=== PATIENT | male | born 1965 | race Two or more races ===

== ENCOUNTER 2021-02-24 11:31 | Inpatient (IN) | payer MEDICAID, OTHER ==
[~2021-02-24] VITALS: Ht 188 cm; Wt 114.5 kg
[2021-02-24] MEDS ORDERED: PANTOPRAZOLE 40 MG/10 ML VIAL INJ IV STA (11:40)
[2021-02-24] MEDS ORDERED: SODIUM CHLORIDE 0.9% 500 ML IVB ONE (11:45)
[2021-02-24] MEDS ORDERED: ONDANSETRON HCL 4 MG/2 ML VIAL IV ONE (11:45)
[2021-02-24] MEDS ORDERED: dilTIAZem 25 MG/5 ML VIAL IV ONE (11:45)
[2021-02-24 12:15] LABS: Basophils # (auto) 0.1 10 ^3/uL (0-0.2); Basophils % (auto) 0.4 % (0.0-2.0); Eosinophils # (auto) 0 10 ^3/uL (0-0.8); Hemoglobin 15.9 g/dL (13.5-17.5); Monocytes % (auto) 8.7 % (0.0-12.0); Nucleated Red Blood Cells % 0.1 %
[2021-02-24 12:17] LABS: Eosinophils % (auto) 0.3 % (0.0-7.0); Hematocrit 46.5 % (41.0-53.0); Lymphocytes # (auto) 0.7 10 ^3/uL (0.4-5.4); Lymphocytes % (auto) 4.3 % (10.0-50.0); Mean Corpuscular Hemoglobin 29.8 pg (28.0-32.0); Mean Corpuscular Hgb Conc. 34.1 g/dL (32.0-36.0); Mean Corpuscular Volume 87.3 fL (80.0-100.0); Monocytes # (auto) 1.5 10 ^3/uL (0-1.3); Neutrophils # (auto) 14.4 10 ^3/uL (1.6-8.6); Neutrophils % (auto) 86.3 % (37.0-80.0); Platelet Count (auto) 473 10^3/uL (140-450); Red Blood Cells 5.33 10^6/uL (4.5-5.90); Red Cell Distribution Width 14.1 % (11.8-14.3); White Blood Cell 16.7 10^3/uL (4.4-10.8)
[2021-02-24 12:35] LABS: INR 1.14 (0.9-1.15); Partial Thromboplastin Time 28.1 sec (23.0-31.2)
[2021-02-24 12:41] LABS: Alanine Aminotransferase 30 U/L (16-61); Albumin 2.1 g/dL (3.4-5.0); Amylase 53 U/L (25-115); Anion Gap 10 (5-15); Blood Urea Nitrogen 17 mg/dL (7-18); Calcium 9.1 mg/dL (8.5-10.1); Carbon Dioxide 22 mmol/L (21-32); Chloride 102 mmol/L (98-107); Glucose 121 mg/dL (74-106); Lipase 205 U/L (73-393); Potassium 4.2 mmol/L (3.5-5.1); Sodium 134 mmol/L (136-145)
[2021-02-24 12:46] LABS: Alkaline Phosphatase 99 U/L (45-117); Aspartate Aminotransferase 34 U/L (15-37); BUN/Creatinine Ratio 18.1; Bilirubin, Total 0.9 mg/dL (0.2-1.0); GFR African American 106 mL/min; GFR Non-African American 88 mL/min; Total Protein 6.6 g/dL (6.4-8.2)
[2021-02-24] MEDS ORDERED: SOD CHL 0.45% 1,000 ML IV SCH (15:30)
[2021-02-24] MEDS ORDERED: NITROGLYCERIN 0.4 MG SL TAB SL PRN (15:30)
[2021-02-24] MEDS ORDERED: ACETAMINOPHEN 325 MG TAB PO PRN (15:30)
[2021-02-24] MEDS ORDERED: MORPHINE SULF INJ 2 MG/ML SYRINGE 1ML IV PRN ×2 (15:30)
[2021-02-24 15:34] LABS: Urine Bacteria FEW /hpf (None Seen); Urine Blood Negative /uL (Negative); Urine Mucus FEW (None Seen); Urine Specific Gravity 1.022 (1.001-1.035); Urine WBC 4 /hpf (0 - 3)
[2021-02-24 15:56] LABS: Amphetamine Screen, Urine NEGATIVE (NEGATIVE); Barbiturate Scree,Urine NEGATIVE (NEGATIVE); Benzodiazephine Screen, Urine NEGATIVE (NEGATIVE); Cannabinoid Screen, Urine NEGATIVE (NEGATIVE); Cocaine Screen, Urine NEGATIVE (NEGATIVE); Opiate Scree,Urine NEGATIVE (NEGATIVE); Phencyclidine Screen, Urine NEGATIVE (NEGATIVE)
[2021-02-24] MEDS: METOCLOPRAMIDE HCL 5MG/ml INJ 2ml VIAL IV PRN (16:02)
[2021-02-24] MEDS: PROPRANOLOL HCL 20 MG TAB PO SCH ×2 (16:08→22:06)
[2021-02-24] MEDS ORDERED: PROPRANOLOL HCL 20 MG TAB PO SCH (22:00)
[2021-02-24] MEDS: ALBUMIN 25% 50 ML IV SCH (22:07)
[2021-02-24 22:08] VITALS: BP 113/58
[2021-02-24] MEDS ORDERED: METO25TA93 PO (22:42)
[2021-02-24] MEDS ORDERED: ASPI-498 PO (22:42)
[2021-02-25] MEDS: ALBUMIN 25% 50 ML IV SCH ×2 (04:05→13:22)
[2021-02-25 04:37] VITALS: BP 107/69
[2021-02-25] MEDS: PROPRANOLOL HCL 20 MG TAB PO SCH ×3 (05:37→22:03)
[2021-02-25 08:30] VITALS: BP 106/68
[2021-02-25 12:30] VITALS: BP 100/68
[2021-02-25] MEDS ORDERED: GADOTERATE MEG 10 MMOL/20ml INJ (0.5MMOL/ml) IV ONE (14:54)
[2021-02-25 17:00] VITALS: BP 101/75
[2021-02-25] MEDS: HYDROcodone-ACET 5/325MG TAB PO PRN (18:19)
[2021-02-25 20:00] VITALS: BP 116/68
[2021-02-25 21:38] VITALS: BP 116/68
[2021-02-26] MEDS: HYDROcodone-ACET 5/325MG TAB PO PRN (03:48)
[2021-02-26 05:00] VITALS: BP 110/66
[2021-02-26] MEDS: PROPRANOLOL HCL 20 MG TAB PO SCH ×3 (05:53→22:35)
[2021-02-26 06:46] LABS: Basophils # (auto) 0.1 10 ^3/uL (0-0.2); Basophils % (auto) 0.3 % (0.0-2.0); Eosinophils # (auto) 0.1 10 ^3/uL (0-0.8); Eosinophils % (auto) 0.6 % (0.0-7.0); Hematocrit 46.2 % (41.0-53.0); Hemoglobin 15.3 g/dL (13.5-17.5); Lymphocytes # (auto) 0.6 10 ^3/uL (0.4-5.4); Lymphocytes % (auto) 3.7 % (10.0-50.0); Mean Corpuscular Hemoglobin 29.2 pg (28.0-32.0); Mean Corpuscular Hgb Conc. 33.2 g/dL (32.0-36.0); Mean Corpuscular Volume 88.1 fL (80.0-100.0); Monocytes # (auto) 1.3 10 ^3/uL (0-1.3); Monocytes % (auto) 8.4 % (0.0-12.0); Neutrophils # (auto) 13.9 10 ^3/uL (1.6-8.6); Nucleated Red Blood Cells % 0.2 %; Platelet Count (auto) 362 10^3/uL (140-450); Red Blood Cells 5.24 10^6/uL (4.5-5.90); Red Cell Distribution Width 14.3 % (11.8-14.3); White Blood Cell 15.9 10^3/uL (4.4-10.8)
[2021-02-26 07:06] LABS: Potassium 4.4 mmol/L (3.5-5.1)
[2021-02-26 07:11] LABS: BUN/Creatinine Ratio 23.4; Calcium 8.9 mg/dL (8.5-10.1)
[2021-02-26 09:00] VITALS: BP 106/67
[2021-02-26] MEDS ORDERED: HEPARIN SODIUM (PORCINE) 5000 UNITS/ML 1ML VIAL IV ONE (13:15)
[2021-02-26 13:59] LABS: INR 1.24 (0.9-1.15)
[2021-02-26] MEDS: HEPARIN DRIP/D5W 100UNITS/ML 250 ML IV SCH (14:34)
[2021-02-26 17:00] VITALS: BP 105/64
[2021-02-26 22:00] VITALS: BP 104/66
[2021-02-26 22:24] LABS: INR 1.18 (0.9-1.15); Partial Thromboplastin Time 42.1 sec (23.0-31.2)
[2021-02-27] MEDS: HEPARIN DRIP/D5W 100UNITS/ML 250 ML IV SCH ×2 (01:29→13:06)
[2021-02-27 04:46] LABS: Basophils # (auto) 0.1 10 ^3/uL (0-0.2); Basophils % (auto) 0.4 % (0.0-2.0); Eosinophils # (auto) 0.1 10 ^3/uL (0-0.8); Eosinophils % (auto) 0.4 % (0.0-7.0); Hemoglobin 15.2 g/dL (13.5-17.5); Lymphocytes # (auto) 0.6 10 ^3/uL (0.4-5.4); Lymphocytes % (auto) 3.9 % (10.0-50.0); Mean Corpuscular Hgb Conc. 32.3 g/dL (32.0-36.0); Mean Corpuscular Volume 89.6 fL (80.0-100.0); Monocytes # (auto) 1.4 10 ^3/uL (0-1.3); Monocytes % (auto) 8.7 % (0.0-12.0); Neutrophils # (auto) 14.2 10 ^3/uL (1.6-8.6); Neutrophils % (auto) 86.6 % (37.0-80.0); Platelet Count (auto) 362 10^3/uL (140-450); Red Blood Cells 5.25 10^6/uL (4.5-5.90); Red Cell Distribution Width 14.4 % (11.8-14.3); White Blood Cell 16.4 10^3/uL (4.4-10.8)
[2021-02-27 04:59] VITALS: BP 108/71
[2021-02-27 05:26] LABS: INR 1.18 (0.9-1.15); Partial Thromboplastin Time 41.7 sec (23.0-31.2)
[2021-02-27] MEDS: PROPRANOLOL HCL 20 MG TAB PO SCH ×3 (06:05→22:04)
[2021-02-27 09:00] VITALS: BP 110/73
[2021-02-27 11:16] LABS: INR 1.2 (0.9-1.15)
[2021-02-27 13:00] VITALS: BP 107/66
[2021-02-27 17:25] VITALS: BP 105/60
[2021-02-27 18:40] LABS: INR 1.19 (0.9-1.15)
[2021-02-27 22:00] VITALS: BP 105/62
[2021-02-28 00:40] LABS: INR 1.21 (0.9-1.15)
[2021-02-28] MEDS: HEPARIN DRIP/D5W 100UNITS/ML 250 ML IV SCH ×3 (01:02→21:53)
[2021-02-28 05:00] VITALS: BP 100/62
[2021-02-28] MEDS: PROPRANOLOL HCL 20 MG TAB PO SCH ×3 (06:08→22:05)
[2021-02-28 06:32] LABS: Basophils # (auto) 0 10 ^3/uL (0-0.2); Basophils % (auto) 0.3 % (0.0-2.0); Eosinophils # (auto) 0 10 ^3/uL (0-0.8); Eosinophils % (auto) 0.3 % (0.0-7.0); Hematocrit 45.5 % (41.0-53.0); Hemoglobin 15.2 g/dL (13.5-17.5); Lymphocytes # (auto) 0.7 10 ^3/uL (0.4-5.4); Lymphocytes % (auto) 4.3 % (10.0-50.0); Mean Corpuscular Hemoglobin 29.1 pg (28.0-32.0); Mean Corpuscular Hgb Conc. 33.4 g/dL (32.0-36.0); Mean Corpuscular Volume 86.9 fL (80.0-100.0); Monocytes # (auto) 1.3 10 ^3/uL (0-1.3); Neutrophils # (auto) 14.1 10 ^3/uL (1.6-8.6); Neutrophils % (auto) 87.1 % (37.0-80.0); Nucleated Red Blood Cells % 0.1 %; Platelet Count (auto) 410 10^3/uL (140-450); Red Blood Cells 5.23 10^6/uL (4.5-5.90); Red Cell Distribution Width 14.2 % (11.8-14.3); White Blood Cell 16.2 10^3/uL (4.4-10.8)
[2021-02-28 06:54] LABS: BUN/Creatinine Ratio 22.7; Calcium 8.8 mg/dL (8.5-10.1); Potassium 4.3 mmol/L (3.5-5.1)
[2021-02-28 07:09] LABS: INR 1.22 (0.9-1.15); Partial Thromboplastin Time 64.6 sec (23.0-31.2)
[2021-02-28 09:00] VITALS: BP 115/64
[2021-02-28 13:00] VITALS: BP 106/70
[2021-02-28] MEDS ORDERED: PANTOPRAZOLE 40 MG/10 ML VIAL INJ IV ONE (15:00)
[2021-02-28] MEDS ORDERED: ESOMEPRAZOLE 40 MG/5ml VIAL INJ IV ONE (15:15)
[2021-02-28 15:49] LABS: Albumin 1.8 g/dL (3.4-5.0); Calcium 9.1 mg/dL (8.5-10.1); Potassium 4.9 mmol/L (3.5-5.1)
[2021-02-28 15:52] LABS: BUN/Creatinine Ratio 17.3; Total Protein 6.2 g/dL (6.4-8.2)
[2021-02-28 16:32] VITALS: BP 95/48
[2021-02-28] MEDS ORDERED: METOCLOPRAMIDE HCL 5MG/ml INJ 2ml VIAL ONE (16:47)
[2021-02-28] MEDS: METOCLOPRAMIDE HCL 5MG/ml INJ 2ml VIAL IV PRN (16:54)
[2021-02-28 22:00] VITALS: BP 114/67
[2021-03-01 05:00] VITALS: BP 108/73
[2021-03-01 05:58] LABS: Basophils # (auto) 0.1 10 ^3/uL (0-0.2); Basophils % (auto) 0.4 % (0.0-2.0); Eosinophils # (auto) 0.1 10 ^3/uL (0-0.8); Eosinophils % (auto) 0.3 % (0.0-7.0); Hematocrit 46.2 % (41.0-53.0); Hemoglobin 15.6 g/dL (13.5-17.5); Lymphocytes # (auto) 0.8 10 ^3/uL (0.4-5.4); Lymphocytes % (auto) 4.6 % (10.0-50.0); Mean Corpuscular Hemoglobin 29.3 pg (28.0-32.0); Mean Corpuscular Hgb Conc. 33.7 g/dL (32.0-36.0); Mean Corpuscular Volume 86.9 fL (80.0-100.0); Monocytes # (auto) 1.4 10 ^3/uL (0-1.3); Monocytes % (auto) 8.3 % (0.0-12.0); Neutrophils # (auto) 14.3 10 ^3/uL (1.6-8.6); Neutrophils % (auto) 86.4 % (37.0-80.0); Nucleated Red Blood Cells % 0.5 %; Platelet Count (auto) 399 10^3/uL (140-450); Red Blood Cells 5.32 10^6/uL (4.5-5.90); Red Cell Distribution Width 14.1 % (11.8-14.3); White Blood Cell 16.6 10^3/uL (4.4-10.8)
[2021-03-01] MEDS: PROPRANOLOL HCL 20 MG TAB PO SCH ×3 (06:02→22:26)
[2021-03-01] MEDS: HEPARIN DRIP/D5W 100UNITS/ML 250 ML IV SCH ×2 (06:05→17:26)
[2021-03-01 06:17] LABS: INR 1.21 (0.9-1.15)
[2021-03-01 06:20] LABS: Partial Thromboplastin Time 75.4 sec (23.0-31.2)
[2021-03-01 06:21] LABS: Potassium 4.2 mmol/L (3.5-5.1)
[2021-03-01 06:29] LABS: Albumin 1.7 g/dL (3.4-5.0); BUN/Creatinine Ratio 25.4; Bilirubin, Total 0.9 mg/dL (0.2-1.0); Calcium 8.7 mg/dL (8.5-10.1); Total Protein 5.7 g/dL (6.4-8.2)
[2021-03-01 09:00] VITALS: BP 100/79
[2021-03-01] MEDS ORDERED: PANTOPRAZOLE 40 MG/10 ML VIAL INJ IV SCH (10:00)
[2021-03-01] MEDS: ESOMEPRAZOLE 40 MG/5ml VIAL INJ IV SCH (10:17)
[2021-03-01 12:37] LABS: INR 1.24 (0.9-1.15); Partial Thromboplastin Time 49.5 sec (23.0-31.2)
[2021-03-01 13:00] VITALS: BP 108/77
[2021-03-01 16:58] VITALS: BP 116/66
[2021-03-01 19:05] LABS: INR 1.18 (0.9-1.15); Partial Thromboplastin Time 51.3 sec (23.0-31.2)
[2021-03-01 22:00] VITALS: BP 105/69
[2021-03-02 01:36] LABS: INR 1.21 (0.9-1.15)
[2021-03-02 01:42] LABS: Partial Thromboplastin Time 79.4 sec (23.0-31.2)
[2021-03-02] MEDS: HEPARIN DRIP/D5W 100UNITS/ML 250 ML IV SCH ×2 (02:58→16:55)
[2021-03-02 05:30] VITALS: BP 106/74
[2021-03-02] MEDS: PROPRANOLOL HCL 20 MG TAB PO SCH ×4 (05:55→22:21)
[2021-03-02 06:55] LABS: Basophils # (auto) 0.1 10 ^3/uL (0-0.2); Basophils % (auto) 0.4 % (0.0-2.0); Eosinophils # (auto) 0 10 ^3/uL (0-0.8); Eosinophils % (auto) 0.2 % (0.0-7.0); Hematocrit 47.7 % (41.0-53.0); Lymphocytes # (auto) 0.7 10 ^3/uL (0.4-5.4); Mean Corpuscular Hemoglobin 29.1 pg (28.0-32.0); Mean Corpuscular Hgb Conc. 33.5 g/dL (32.0-36.0); Mean Corpuscular Volume 86.7 fL (80.0-100.0); Monocytes # (auto) 1.2 10 ^3/uL (0-1.3); Monocytes % (auto) 6.8 % (0.0-12.0); Neutrophils # (auto) 15.7 10 ^3/uL (1.6-8.6); Neutrophils % (auto) 88.6 % (37.0-80.0); Nucleated Red Blood Cells % 0.2 %; Platelet Count (auto) 447 10^3/uL (140-450); Red Cell Distribution Width 14.3 % (11.8-14.3); White Blood Cell 17.7 10^3/uL (4.4-10.8)
[2021-03-02 07:09] LABS: Potassium 4.3 mmol/L (3.5-5.1)
[2021-03-02 07:16] LABS: Albumin 1.8 g/dL (3.4-5.0); Bilirubin, Total 0.9 mg/dL (0.2-1.0); Calcium 8.8 mg/dL (8.5-10.1); Total Protein 5.9 g/dL (6.4-8.2)
[2021-03-02 08:00] VITALS: BP 106/74
[2021-03-02 08:40] VITALS: BP 100/56
[2021-03-02 10:25] LABS: INR 1.2 (0.9-1.15); Partial Thromboplastin Time 63.2 sec (23.0-31.2)
[2021-03-02 12:30] LABS: Hepatitis A Ab IgM Negative; Hepatitis B Core IgM Negative; Hepatitis B Surface Antigen Negative (Negative)
[2021-03-02 12:31] LABS: Hepatitis C Antibody Negative (Negative)
[2021-03-02 13:00] VITALS: BP 102/67
[2021-03-02] MEDS ORDERED: LIDOCAINE 2%HCL (LOCAL ANESTH.) INJ 20ML MDV ONE (13:47)
[2021-03-02] MEDS ORDERED: IODIXANOL 320MG/ML 100ML BTL IV ONE (13:47)
[2021-03-02] MEDS ORDERED: MIDAZOLAM HCL 1MG/1ML-2 ML VIAL ONE (13:59)
[2021-03-02] MEDS ORDERED: fentaNYL CITRATE 100 MCG/2 ML VL ONE (13:59)
[2021-03-02 16:57] VITALS: BP 119/91
[2021-03-02] MEDS: ESOMEPRAZOLE 40 MG/5ml VIAL INJ IV SCH (17:43)
[2021-03-02] MEDS: levoFLOXacin 500MG 100 ML IV SCH (17:43)
[2021-03-02 19:26] LABS: INR 1.34 (0.9-1.15); Partial Thromboplastin Time 38.2 sec (23.0-31.2)
[2021-03-02] MEDS: HYDROcodone-ACET 5/325MG TAB PO PRN (20:34)
[2021-03-02 22:00] VITALS: BP 115/74
[2021-03-03] VITALS (12 sets, daily range): BP systolic 99–141; BP diastolic 59–97
[2021-03-03] MEDS: HEPARIN DRIP/D5W 100UNITS/ML 250 ML IV SCH (00:30)
[2021-03-03 06:09] LABS: Basophils # (auto) 0 10 ^3/uL (0-0.2); Basophils % (auto) 0.2 % (0.0-2.0); Eosinophils # (auto) 0 10 ^3/uL (0-0.8); Eosinophils % (auto) 0.2 % (0.0-7.0); Hematocrit 47.8 % (41.0-53.0); Hemoglobin 15.8 g/dL (13.5-17.5); Lymphocytes # (auto) 0.6 10 ^3/uL (0.4-5.4); Lymphocytes % (auto) 3.7 % (10.0-50.0); Mean Corpuscular Hemoglobin 28.9 pg (28.0-32.0); Mean Corpuscular Hgb Conc. 33.2 g/dL (32.0-36.0); Mean Corpuscular Volume 87.2 fL (80.0-100.0); Monocytes # (auto) 1.4 10 ^3/uL (0-1.3); Monocytes % (auto) 8.8 % (0.0-12.0); Neutrophils # (auto) 14.1 10 ^3/uL (1.6-8.6); Neutrophils % (auto) 87.1 % (37.0-80.0); Nucleated Red Blood Cells % 0.2 %; Platelet Count (auto) 402 10^3/uL (140-450); Red Blood Cells 5.48 10^6/uL (4.5-5.90); Red Cell Distribution Width 14.2 % (11.8-14.3); White Blood Cell 16.2 10^3/uL (4.4-10.8)
[2021-03-03 06:23] LABS: INR 1.28 (0.9-1.15); Partial Thromboplastin Time 59.7 sec (23.0-31.2)
[2021-03-03 06:33] LABS: Albumin 1.6 g/dL (3.4-5.0); Calcium 8.9 mg/dL (8.5-10.1); Potassium 4.6 mmol/L (3.5-5.1)
[2021-03-03 06:39] LABS: BUN/Creatinine Ratio 29.5; Bilirubin, Total 0.8 mg/dL (0.2-1.0); Total Protein 5.8 g/dL (6.4-8.2)
[2021-03-03] MEDS: PROPRANOLOL HCL 20 MG TAB PO SCH ×3 (06:46→21:48)
[2021-03-03] MEDS ORDERED: MIDAZOLAM HCL 1MG/1ML-2 ML VIAL ONE (09:58)
[2021-03-03] MEDS ORDERED: LIDOCAINE 2%HCL (LOCAL ANESTH.) INJ 20ML MDV ONE (09:58)
[2021-03-03] MEDS ORDERED: fentaNYL CITRATE 100 MCG/2 ML VL ONE (09:59)
[2021-03-03] MEDS: ESOMEPRAZOLE 40 MG/5ml VIAL INJ IV SCH (10:00)
[2021-03-03] MEDS ORDERED: MIDAZOLAM HCL 1MG/1ML-2 ML VIAL IV ONE (11:15)
[2021-03-03] MEDS ORDERED: fentaNYL CITRATE 100 MCG/2 ML VL IV ONE (11:15)
[2021-03-03] MEDS: levoFLOXacin 500MG 100 ML IV SCH (11:21)
[2021-03-03 12:13] LABS: INR 1.23 (0.9-1.15); Partial Thromboplastin Time 22.9 sec (23.0-31.2)
[2021-03-03] MEDS ORDERED: HEPARIN DRIP/D5W 100UNITS/ML 250 ML IV SCH (14:00)
[2021-03-03] MEDS ORDERED: HEPARIN SODIUM (PORCINE) 5000 UNITS/ML 1ML VIAL IV ONE (14:00)
[2021-03-03 17:56] LABS: Anion Gap 10 (5-15); BUN/Creatinine Ratio 25.7; Blood Urea Nitrogen 26 mg/dL (7-18); Calcium 8.3 mg/dL (8.5-10.1); Carbon Dioxide 24 mmol/L (21-32); Chloride 97 mmol/L (98-107); GFR African American 98 mL/min; GFR Non-African American 81 mL/min; Glucose 141 mg/dL (74-106); Potassium 4.8 mmol/L (3.5-5.1); Sodium 131 mmol/L (136-145)
[2021-03-03] MEDS ORDERED: ONDANSETRON HCL 4 MG/2 ML VIAL IV PRN (18:00)
[2021-03-03 18:49] LABS: Hematocrit 48.9 % (41.0-53.0); Hemoglobin 16.6 g/dL (13.5-17.5); Mean Corpuscular Hemoglobin 29.3 pg (28.0-32.0); Mean Corpuscular Volume 86.2 fL (80.0-100.0); Platelet Count (auto) 477 10^3/uL (140-450); Red Blood Cells 5.67 10^6/uL (4.5-5.90); Red Cell Distribution Width 14.2 % (11.8-14.3); White Blood Cell 22.3 10^3/uL (4.4-10.8)
[2021-03-03 19:02] LABS: Basophils % (manual) 0 (0.0-2.0); Blast Cells 0; Eosinophils % (manual) 0 (0-7); Metamyelocytes % 0; Myelocytes % 0; Promyelocytes % 0; Reactive Lymphocytes 0
[2021-03-03 19:18] LABS: Band Neutrophils % (manual) 3; Lymphocytes % (manual) 5 (10.0-50.0); Monocytes % (manual) 7 (0-12)
[2021-03-03] MEDS: APIXABAN 5 MG TAB PO SCH (22:00)
[2021-03-03] MEDS: DOXYCYCLINE 100 MG TAB/CAP PO SCH (22:00)
[2021-03-04 05:29] VITALS: BP 107/75
[2021-03-04] MEDS: PROPRANOLOL HCL 20 MG TAB PO SCH ×3 (06:00→21:56)
[2021-03-04 09:00] VITALS: BP 102/84
[2021-03-04] MEDS: ESOMEPRAZOLE 40 MG/5ml VIAL INJ IV SCH (09:58)
[2021-03-04] MEDS: DOXYCYCLINE 100 MG TAB/CAP PO SCH ×2 (09:59→22:16)
[2021-03-04] MEDS: APIXABAN 5 MG TAB PO SCH ×2 (09:59→22:16)
[2021-03-04 13:00] VITALS: BP 109/67
[2021-03-04] MEDS: METOCLOPRAMIDE HCL 5MG/ml INJ 2ml VIAL IV PRN (14:27)
[2021-03-04] MEDS: ALUM & MAG HYDROX-SIMETH LIQ(MAALOX) 30 ML PO PRN (14:28)
[2021-03-04] MEDS ORDERED: HYDROcodone-ACET 5/325MG TAB PO PRN (16:00)
[2021-03-04] MEDS ORDERED: SODIUM CHLORIDE 0.9% 2,000 ML IV ONE (16:15)
[2021-03-04 16:50] LABS: Hematocrit 51.3 % (41.0-53.0); Hemoglobin 17.1 g/dL (13.5-17.5); Mean Corpuscular Hemoglobin 28.9 pg (28.0-32.0); Mean Corpuscular Hgb Conc. 33.3 g/dL (32.0-36.0); Mean Corpuscular Volume 86.8 fL (80.0-100.0); Platelet Count (auto) 439 10^3/uL (140-450); Red Blood Cells 5.91 10^6/uL (4.5-5.90); Red Cell Distribution Width 14.5 % (11.8-14.3); White Blood Cell 23.9 10^3/uL (4.4-10.8)
[2021-03-04 17:12] VITALS: BP 106/69
[2021-03-04 17:12] LABS: Albumin 1.6 g/dL (3.4-5.0); Calcium 8.6 mg/dL (8.5-10.1); Magnesium 2.7 mg/dL (1.6-2.6); Potassium 5.1 mmol/L (3.5-5.1)
[2021-03-04 17:18] LABS: BUN/Creatinine Ratio 29.2; Bilirubin, Total 0.5 mg/dL (0.2-1.0); Phosphorus 3.8 mg/dL (2.5-4.90); Pre Albumin 7.7 mg/dL (20.0-40.0); Total Protein 5.6 g/dL (6.4-8.2)
[2021-03-04 17:43] LABS: Band Neutrophils % (manual) 0; Basophils % (manual) 0 (0.0-2.0); Blast Cells 0; Eosinophils % (manual) 0 (0-7); Metamyelocytes % 0; Myelocytes % 0; Promyelocytes % 0; Reactive Lymphocytes 0
[2021-03-04] MEDS ORDERED: TPN PER PHARMACY 0 ML IV SCH (17:45)
[2021-03-04 18:00] LABS: Urine Bacteria FEW /hpf (None Seen); Urine Blood Negative /uL (Negative); Urine Hyaline Cast MOD /lpf (0 - 2); Urine Mucus FEW (None Seen); Urine Specific Gravity 1.031 (1.001-1.035); Urine Sperm PRESENT /hpf (None Seen); Urine WBC 1 /hpf (0 - 3)
[2021-03-04 19:42] LABS: Lymphocytes % (manual) 4 (10.0-50.0); Monocytes % (manual) 7 (0-12)
[2021-03-04] MEDS ORDERED: LIDOCAINE 1% (LOCAL ANESTH.) PF 5ml SDV ID ONE (19:45)
[2021-03-04] MEDS ORDERED: AMINO ACID INFUSION IN D10W 1,000 ML IV NR (20:00)
[2021-03-04] MEDS: SODIUM CHLOR 0.9% PF (SALINE LOCK) 10ML VIAL/SYR IV SCH (21:40)
[2021-03-04 22:00] VITALS: BP_SYST 100; BP_SYST 107; BP_SYST 99; BP_DIAS 66; BP_DIAS 68
[2021-03-05] MEDS ORDERED: DEXTROSE (50%) 50ML SYRG IV SCH
[2021-03-05] MEDS: InsuLIN REG 1unit/0.01ml Soln (100units/ml) SC SCH ×4 (00:31→18:00)
[2021-03-05 05:00] VITALS: BP_SYST 112; BP_SYST 115; BP_SYST 84; BP_DIAS 67; BP_DIAS 68; BP_DIAS 70
[2021-03-05] MEDS: PROPRANOLOL HCL 20 MG TAB PO SCH ×3 (05:41→22:00)
[2021-03-05] MEDS: ACCU-CHEK COMFORT CURVE STRIP VI SCH ×4 (05:43→18:00)
[2021-03-05 05:54] LABS: Potassium 4.5 mmol/L (3.5-5.1)
[2021-03-05 06:01] LABS: Albumin 1.5 g/dL (3.4-5.0); BUN/Creatinine Ratio 30.9; Bilirubin, Total 0.6 mg/dL (0.2-1.0); Calcium 8.1 mg/dL (8.5-10.1); Magnesium 2.6 mg/dL (1.6-2.6); Phosphorus 3.1 mg/dL (2.5-4.90); Total Protein 5.3 g/dL (6.4-8.2)
[2021-03-05 09:51] VITALS: BP 93/61
[2021-03-05] MEDS: DOXYCYCLINE 100 MG TAB/CAP PO SCH ×2 (10:19→22:00)
[2021-03-05] MEDS: APIXABAN 5 MG TAB PO SCH ×2 (10:19→22:00)
[2021-03-05] MEDS: ESOMEPRAZOLE 40 MG/5ml VIAL INJ IV SCH (10:20)
[2021-03-05] MEDS: SODIUM CHLOR 0.9% PF (SALINE LOCK) 10ML VIAL/SYR IV SCH ×2 (10:23→22:00)
[2021-03-05] MEDS ORDERED: ERTAPENEM SOD INJ 1 GM in SODIUM CHL 0.9% 50 ML IV ONE (11:15)
[2021-03-05 12:32] VITALS: BP 119/67
[2021-03-05] MEDS: ALBUMIN 25% 100 ML IV SCH ×2 (14:50→20:30)
[2021-03-05 16:27] VITALS: BP 89/58
[2021-03-05] MEDS: ALUM & MAG HYDROX-SIMETH LIQ(MAALOX) 30 ML PO PRN (18:30)
[2021-03-05] MEDS ORDERED: TPN PER PHARMACY IV NR ×10 (20:00)
[2021-03-05 22:27] VITALS: BP 107/52
[2021-03-06] MEDS: ACCU-CHEK COMFORT CURVE STRIP VI SCH ×3 (00:39→12:00)
[2021-03-06] MEDS: InsuLIN REG 1unit/0.01ml Soln (100units/ml) SC SCH ×3 (00:39→12:00)
[2021-03-06] MEDS: ALBUMIN 25% 100 ML IV SCH (03:30)
[2021-03-06 05:45] VITALS: BP 105/67
[2021-03-06] MEDS: PROPRANOLOL HCL 20 MG TAB PO SCH ×2 (06:00→15:00)
[2021-03-06 06:15] LABS: Potassium 4.5 mmol/L (3.5-5.1)
[2021-03-06 06:23] LABS: Albumin 2.3 g/dL (3.4-5.0); BUN/Creatinine Ratio 40.2; Bilirubin, Total 0.8 mg/dL (0.2-1.0); Calcium 8.5 mg/dL (8.5-10.1); Magnesium 2.8 mg/dL (1.6-2.6); Phosphorus 2.6 mg/dL (2.5-4.90); Total Protein 5.3 g/dL (6.4-8.2)
[2021-03-06 09:10] VITALS: BP 90/54
[2021-03-06] MEDS ORDERED: ERTAPENEM SOD INJ 1 GM in SODIUM CHL 0.9% 50 ML IV SCH (10:00)
[2021-03-06] MEDS: ESOMEPRAZOLE 40 MG/5ml VIAL INJ IV SCH (10:28)
[2021-03-06] MEDS: SODIUM CHLOR 0.9% PF (SALINE LOCK) 10ML VIAL/SYR IV SCH (10:28)
[2021-03-06] MEDS: APIXABAN 5 MG TAB PO SCH (10:28)
[2021-03-06] MEDS: DOXYCYCLINE 100 MG TAB/CAP PO SCH (10:28)
[2021-03-06] MEDS ORDERED: SODIUM PHOSP 20MEQ(15MMOL) IN NS 100 ML IV ONE (11:30)
[2021-03-06 12:38] VITALS: BP 117/69
[2021-03-06 14:21] VITALS: BP 117/69
[2021-03-06] MEDS ORDERED: TPN PER PHARMACY IV NR ×10 (20:00)
== END 2021-03-06 17:00 | disposition hospice, home (50) | DRG 240 ==
LOC: ER 11:31 → OVERFLOW 15:31 → WEST WING 20:57 → TELE-WESTW 03-01 16:43
PROVIDERS: ADMIT Hospitalist; ATTEND Hospitalist
PROC: 0W9G30Z Drainage of Peritoneal Cavity with Drainage Device, Percutaneous Approach (ICD-10-PCS; 2021-02-25)
PROC: 06H03DZ Insertion of Intraluminal Device into Inferior Vena Cava, Percutaneous Approach (ICD-10-PCS; principal; 2021-03-02)
PROC: B519YZA Fluoroscopy of Inferior Vena Cava using Other Contrast, Guidance (ICD-10-PCS; 2021-03-02)
PROC: B549ZZA Ultrasonography of Inferior Vena Cava, Guidance (ICD-10-PCS; 2021-03-02)
PROC: 0JH83XZ Insertion of Tunneled Vascular Access Device into Abdomen Subcutaneous Tissue and Fascia, Percutaneous Approach (ICD-10-PCS; 2021-03-03)
PROC: 02HV33Z Insertion of Infusion Device into Superior Vena Cava, Percutaneous Approach (ICD-10-PCS; 2021-03-04)
DX: C16.9 Malignant neoplasm of stomach, unspecified (principal); J96.01 Acute respiratory failure with hypoxia; I26.94 Multiple subsegmental thrombotic pulmonary emboli without acute cor pulmonale; I82.412 Acute embolism and thrombosis of left femoral vein; D68.59 Other primary thrombophilia; E44.1 Mild protein-calorie malnutrition; I48.20 Chronic atrial fibrillation, unspecified; K70.31 Alcoholic cirrhosis of liver with ascites; Z51.5 Encounter for palliative care; I82.442 Acute embolism and thrombosis of left tibial vein; D72.829 Elevated white blood cell count, unspecified; K21.00 Gastro-esophageal reflux disease with esophagitis, without bleeding; I95.1 Orthostatic hypotension; E78.5 Hyperlipidemia, unspecified; I10 Essential (primary) hypertension; J98.11 Atelectasis; Z82.49 Family history of ischemic heart disease and other diseases of the circulatory system; Z79.899 Other long term (current) drug therapy; E11.9 Type 2 diabetes mellitus without complications; F17.200 Nicotine dependence, unspecified, uncomplicated; Z53.20 Procedure and treatment not carried out because of patient's decision for unspecified reasons; Z86.16 Personal history of COVID-19; I82.432 Acute embolism and thrombosis of left popliteal vein; Z20.822 Contact with and (suspected) exposure to COVID-19
CPT/HCPCS: 10022; 36415; 36569; 36600; 37619; 70450; 71045; 71275; 74176; 74183; 76000; 76700; 76937; 76942; 77002; 80048; 80053; 80074; 80307; 81001; 82040; 82105; 82140; 82150; 82378; 82805; 82962; 83036; 83605; 83615; 83690; 83735; 83880; 84100; 84154; 84439; 84443; 84478; 84484; 85007; 85025; 85027; 85610; 85730; 86301; 86850; 86900; 86901; 87040; 87205; 87426; 89051; 92610; 93005; 93306; 93970; 95819; 96361; 96374; 96375; 97110; 97116; 97530; 99152; C2625; C9113; G0378; J1335; J1815; J1956; J2250; J2405; J7131; P9047; Q9967